=== PATIENT | male | born 1995 | race Two or more races ===

== ENCOUNTER 2021-12-03 07:34 | Emergency (ER) | payer OTHER ==
[2021-12-03] MEDS ORDERED: ACETAMINOPHEN 500 MG TABLET (FP) PO ONE (08:06)
[2021-12-03 08:14] VITALS: RESP 16; BMI 24.3
[2021-12-03] MEDS ORDERED: ACETAMINOPHEN 325 MG TABLET (FP) ONE (08:22)
[2021-12-03 09:05] LABS: BASO % 0.5 % (0-2.0); EOS % 2.6 % (0-4.5); HEMATOCRIT 45.9 % (35.4-49); HEMOGLOBIN 15.7 GM/dL (11.7-16.9); LYMPH % 28.9 % (8-40); MCH 29.9 pg (25.7-33.7); MCHC 34.1 g/dl (32.0-35.9); MEAN CELL VOLUME 87.6 fl (80-96); MEAN PLT VOLUME 9.1 fl (7.5-11.1); PLATELET COUNT 256 10^3/uL (134-434); RBC 5.24 M/mm3 (4.00-5.60); RDW 12.8 % (11.9-15.9); WHITE BLOOD COUNT 6.6 K/mm3 (4.0-10.0)
[2021-12-03 09:14] LABS: INR 1.05 (0.83-1.09); PROTHROMBIN TIME (PATIENT) 12.1 SEC (9.7-13.0)
[2021-12-03 09:17] LABS: ACTIVATED PTT 29.7 SECONDS (25.2-36.5)
[2021-12-03 09:25] LABS: ALBUMIN 4.1 g/dl (3.4-5.0)
[2021-12-03 09:26] LABS: CALCIUM 9.8 mg/dL (8.5-10.1)
[2021-12-03 09:27] LABS: BLOOD UREA NITROGEN 12.4 mg/dL (7-18)
[2021-12-03 09:30] LABS: CREATININE 0.9 mg/dL (0.55-1.3)
[2021-12-03 09:31] LABS: BILIRUBIN,TOTAL 0.4 mg/dL (0.2-1)
[2021-12-03] MEDS ORDERED: IBUPROFEN 600 MG TABLET (FP) PO ONE ×2 (09:46→10:47)
[2021-12-03] MEDS ORDERED: DEXAMETHASONE SOD PHOSPHATE 20 MG/5 ML VIAL IVPB ONE (10:28)
[2021-12-03] MEDS ORDERED: diazePAM 2 MG TABLET PO ONE (10:29)
[2021-12-03] MEDS ORDERED: diazePAM 2 MG TABLET ONE (10:47)
[2021-12-03] MEDS ORDERED: DEXAMETHASONE SOD PHOSPHATE 10 MG/1 ML VIAL ONE (10:47)
[2021-12-03 11:09] LABS: URINE APPEARANCE CLEAR; URINE BILIRUBIN NEGATIVE (NEGATIVE); URINE COLOR YELLOW; URINE GLUCOSE (UA) NEGATIVE (NEGATIVE); URINE KETONE NEGATIVE (NEGATIVE); URINE LEUK ESTERASE NEGATIVE (NEGATIVE); URINE NITRITE NEGATIVE (NEGATIVE); URINE PROTEIN NEGATIVE (NEGATIVE); URINE UROBILINOGEN 0.2 mg/dL (0.2-1.0)
[2021-12-03 11:57] VITALS: BP 122/74; PULSE 88; TEMP 98.4
== END 2021-12-03 11:38 | disposition home or self-care (01) ==
LOC: JER 07:34
PROC: 3E0333Z Introduction of Anti-inflammatory into Peripheral Vein, Percutaneous Approach (ICD-10-PCS; principal; 2021-12-03)
DX: M54.2 Cervicalgia (principal); M54.50 Low back pain, unspecified; V49.50XA Passenger injured in collision with unspecified motor vehicles in traffic accident, initial encounter
CPT/HCPCS: 36415; 70450-TC; 71045-TC-FY; 72125-TC; 72128-TC; 72131-TC; 72170-TC-FY; 73110-TC-LT-FY; 73130-TC-LT-FY; 80053; 81003; 84484; 85025; 85610; 85730; 86850; 86900; 86901; 93005; 93010; 99285-25; C9803-CS; U0003; U0005